=== PATIENT | male | born 1995 | race Caucasian/White ===

== ENCOUNTER 2020-12-29 17:42 | Emergency (ER) | payer BC, OTHER ==
[~2020-12-29] VITALS: Ht 182 cm; Wt 88.4 kg
--- NOTE | 2020-12-29 17:53 | ED Upper Extremity ---
General Stated Complaint: R COLLAR BONE INJ Source: patient History of Present Illness Date Seen by Provider: Dec 29, 2020 Time Seen by Provider: 17:45 Initial Comments PT ARRIVES VIA POV STATES IMMEDIATELY PRIOR TO ARRIVAL, HE FELL WHILE PLAYING SOFTBALL ( [employer] ), LANDING DIRECTLY ON HIS RIGHT SHOULDER AREA C/O PAIN AND DEFORMITY TO RIGHT COLLAR BONE NO PARESTHESIAS OR MOTOR DEFICITS NO CHEST PAIN NO SHORTNESS OF BREATH NO OTHER INJURIES FROM THE INCIDENT NO PRIOR INJURY TO THIS AREA PT IS LEFT HANDED [employer] Allergies and Home Medications Allergies Coded Allergies: No Known Drug Allergies (Unverified , 12/29/20) Home Medications Hydrocodone/Acetaminophen 1 Each Tablet, 1 EACH PO Q4-6 HOURS PRN for PAIN Prescribed by: CHEY CAMPOS on 12/29/201814 Ondansetron 4 Mg Tab.rapdis, 4 MG PO Q4H Prescribed by: CHEY CAMPOS on 12/29/201814 Patient Home Medication List Home Medication List Reviewed: Yes Review of Systems Constitutional: no symptoms reported Respiratory: no symptoms reported; No short of breath Cardiovascular: no symptoms reported; No chest pain Gastrointestinal: no symptoms reported Genitourinary: no symptoms reported Musculoskeletal: see HPI Skin: no symptoms reported Psychiatric/Neurological: No Symptoms Reported Past [id number] Hx Past Med/Social Hx: Reviewed and Corrections made Patient Social History Alcohol Use: Regular Use Drug of Choice: THC, ADDERALL, XANAX Smoking Status: Current Everyday Smoker (< 1 PPD) Type Used: Cigarettes Substance type: Misuse of prescript meds, Marijuana Past Medical History Surgeries: No Respiratory: No Cardiac: No Neurological: No Genitourinary: No Gastrointestinal: No Musculoskeletal: No HEENT: No Cancer: No Psychosocial: Yes (DRUG ABUSE) Integumentary: No Blood Disorders: No Physical Exam Vital Signs Vital Signs - First Documented 12/29/20 17:50 Temp 36.8 Pulse 101 Resp 18 B/P (MAP) 137/95 (109) Pulse Ox 98 Capillary Refill : Height, Weight, BMI Height: '" Weight: lbs. oz. kg; BMI Method: General Appearance: WD/WN, no apparent distress Neck: non-tender, full range of motion, supple, normal inspection Cardiovascular: normal peripheral pulses, regular rate, rhythm, no murmur Respiratory: chest non-tender, normal breath sounds, no respiratory distress, no accessory muscle use Gastrointestinal: non tender, soft Back: normal inspection, no CVA tenderness, no vertebral tenderness Shoulder: asymmetry, bone tenderness, deformity (GROSS DEFORMITY WITH TENTING OVER RIGHT MEDIAL CLAVICLE AREA. ), limited ROM, pain, soft tissue tenderness, swelling Elbow/Forearm: normal inspection, non-tender, no evidence of injury, normal ROM Wrist: Yes normal inspection, Yes non-tender, Yes no evidence of injury, Yes normal ROM Hand: normal inspection, non-tender, no evidence of injury, normal ROM Neurologic/Tendon: normal sensation, normal motor functions, normal tendon functions, other (DISTAL MOTOR/SENSORY/VASCULAR INTACT) Neurologic/Psychiatric: temple meat cutter II-XII nml as tested, no motor/sensory deficits, alert, normal mood/affect, oriented x 3 Skin: normal color, warm/dry; No ecchymosis Procedures/Interventions Splinting and Joint Reduction : Immobilizers: Large Shoulder Progress/Results/Core Measures Results/Orders My Orders Orders - CHEY CAMPOS DO Chest 1 View, Ap/Pa Only (12/29/20 17:49) Clavicle, Right (12/29/20 17:49) Shoulder Immoblizer (12/29/20 18:06) Ondansetron Oral Dissolve Tab (Zofran (12/29/20 18:15) Fentanyl Inj (Sublimaze Injection) (12/29/20 18:15) Medications Given in ED Current Medications Medications Dose Ordered Sig/Jayashree Route Start Time Stop Time Status Last Admin Dose Admin Fentanyl Citrate 50 mcg ONCE ONCE IM 12/29/20 18:15 12/29/20 18:16 DC 12/29/20 18:17 50 MCG Ondansetron HCl 4 mg ONCE ONCE PO 12/29/20 18:15 12/29/20 18:16 DC 12/29/20 18:17 4 MG Vital Signs/I&O 12/29/20 12/29/20 17:50 18:34 Temp 36.8 36.8 Pulse 101 95 Resp 18 18 B/P (MAP) 137/95 (109) 132/90 (109) Pulse Ox 98 98 Diagnostic Imaging Comments XRAYS PER RADIOLOGIST REPORTS AT 1824: CXR-- FINDINGS: The lung volumes are normal. No focal consolidation is seen. No large pleural effusion or pneumothorax is seen. The cardiomediastinal silhouette is normal in size and contour. There is a comminuted fracture of the right mid clavicle which appears moderately displaced. IMPRESSION: Displaced fracture of the right mid clavicle. No acute pulmonary abnormality. RIGHT CLAVICLE-- FINDINGS: There is a comminuted fracture of the right mid clavicle with marked inferior displacement of the distal principal fragment. There is motion artifact on the tangential view. The acromioclavicular alignment appears normal as does the coracoclavicular interval. IMPRESSION: Markedly displaced, comminuted fracture of the right mid clavicle. Reviewed: Reviewed by Ri Departure Communication (Admissions) 1810--SPOKE WITH DR. OLIVARES, WILL SEE PT IN OFFICE TOMORROW MORNING Impression Primary Impression: CLOSED COMMINUTED RIGHT CLAVICLE FRACTURE Disposition: HOME, SELF-CARE Condition: Stable Departure-Patient Inst. Referrals: NO,LOCAL PHYSICIAN (PCP) Primary Care Physician AMISH OLIVARES MD Patient Instructions: Clavicle Fracture (DC), How to Use a Shoulder Sling Add. Discharge Instructions: ICE TO AREA AT 20 MINUTE INTERVALS WEAR SHOULDER IMMOBILIZER AT ALL TIMES FOLLOW UP WITH DR. OLIVARES TOMORROW--CALL AT 0800 FOR APPOINTMENT TIME Scripts Hydrocodone/Acetaminophen (Hydrocodone-Acetamin 5-325 mg) 1 Each Tablet 1 EACH PO Q4-6 HOURS PRN for PAIN, #20 TAB Prov: CHEY CAMPOS DO 12/29/20 Ondansetron (Ondansetron Odt) 4 Mg Tab.rapdis 4 MG PO Q4H for Nausea/Vomiting, #10 TAB Prov: CHEY CAMPOS DO 12/29/20 CHEY CAMPOS DO Dec 29, 2020 17:53
--- NOTE | 2020-12-29 18:12 | Diagnostic Imaging Report ---
PATIENT HISTORY: Injury. TECHNIQUE: Single frontal view of the chest. COMPARISON: None. FINDINGS: The lung volumes are normal. No focal consolidation is seen. No large pleural effusion or pneumothorax is seen. The cardiomediastinal silhouette is normal in size and contour. There is a comminuted fracture of the right mid clavicle which appears moderately displaced. IMPRESSION: Displaced fracture of the right mid clavicle. No acute pulmonary abnormality. Dictated by: Dictated on workstation # [id number]
[2020-12-29] MEDS ORDERED: ACHD5005 PO (18:15)
[2020-12-29] MEDS ORDERED: ONDA4TAB11 PO (18:15)
[2020-12-29] MEDS ORDERED: fentaNYL INJ 100 MCG/2 ML AMP IM ONE (18:15)
[2020-12-29] MEDS ORDERED: ONDANSETRON 4 MG (ZOFRAN) ORAL DISSOLVE TAB PO ONE (18:15)
--- NOTE | 2020-12-29 18:18 | Diagnostic Imaging Report ---
HISTORY: Fall, right shoulder pain. COMPARISON: None. TECHNIQUE: Two views of the right clavicle. FINDINGS: There is a comminuted fracture of the right mid clavicle with marked inferior displacement of the distal principal fragment. There is motion artifact on the tangential view. The acromioclavicular alignment appears normal as does the coracoclavicular interval. IMPRESSION: Markedly displaced, comminuted fracture of the right mid clavicle. Dictated by: Dictated on workstation # [id number]
[2020-12-29 18:34] VITALS: BP 132/90
== END 2020-12-29 18:34 | disposition home or self-care (01) ==
LOC: ER 17:44
DX: S42.031A Displaced fracture of lateral end of right clavicle, initial encounter for closed fracture (principal); I10 Essential (primary) hypertension; F17.210 Nicotine dependence, cigarettes, uncomplicated; W21.07XA Struck by softball, initial encounter
CPT/HCPCS: 71045; 73000; 99283; A4565